=== PATIENT | male | born 1975 | race Caucasian/White ===

== ENCOUNTER 2018-06-04 17:56 | Emergency (ER) | payer SELFPAY | END 2018-06-04 18:50 | disposition left against medical advice (07) | LOC: MADERS 17:56 | DX: I48.92 Unspecified atrial flutter (principal); F41.9 Anxiety disorder, unspecified; F32.9 Major depressive disorder, single episode, unspecified; F17.210 Nicotine dependence, cigarettes, uncomplicated; I10 Essential (primary) hypertension | CPT/HCPCS: 99283 ==